=== PATIENT | female | born 2000 | race Caucasian/White ===

== ENCOUNTER 2021-05-20 18:53 | Emergency (ER) | payer OTHER ==
[2021-05-20] MEDS ORDERED: NAPROSYN500 MG PO (22:08)
== END 2021-05-20 23:00 | disposition home or self-care (01) ==
LOC: ER1 18:53
DX: R22.0 Localized swelling, mass and lump, head (principal); R51.9 Headache, unspecified; E11.9 Type 2 diabetes mellitus without complications; G43.909 Migraine, unspecified, not intractable, without status migrainosus
CPT/HCPCS: 70450; 96372; 96374; 99284; J1885; J3030

== ENCOUNTER 2021-07-12 17:20 | Emergency (ER) | payer OTHER ==
[~2021-07-12 17:20] MED LIST: NAPROSYN500 MG PO
[2021-07-12 18:48] LABS: HEMOGLOBIN 13.3 gm/dl (12.3-15.3); RED BLOOD COUNT 4.95 M/UL (4.00-5.10); WHITE BLOOD COUNT 8.7 K/UL (4.5-11.0)
[2021-07-12 19:03] LABS: BUN/CREATININE RATIO 29 (0-10)
== END 2021-07-12 21:37 | disposition home or self-care (01) ==
LOC: ER1 17:20
PROVIDERS: Nurse Practitioner
DX: R07.89 Other chest pain (principal); E66.9 Obesity, unspecified; F17.210 Nicotine dependence, cigarettes, uncomplicated
CPT/HCPCS: 71045; 80053; 80307; 81001; 82550; 82553; 83735; 83874; 84100; 84439; 84443; 84484; 84703; 85025; 85379; 93005; 99285